=== PATIENT | female | born 1985 | race Caucasian/White ===

== ENCOUNTER 2017-03-17 12:48 | Emergency (ER) | payer MEDICAID ==
[~2017-03-17] VITALS: Ht 91.4 cm; Wt 59.5 kg
[~2017-03-17 12:48] MED LIST: HYDR-3580 PO; LAMI200T PO; PENI500T PO; PERC10TA27 PO; SERT100 PO; TOPA50TA6 PO
[2017-03-17 14:14] VITALS: BP 125/58; PULSE 90; RESP 16; TEMP 99.5; O2SAT 99
[2017-03-17 16:54] VITALS: BP 131/71; PULSE 99; RESP 16; TEMP 98; O2SAT 97
[2017-03-17] MEDS ORDERED: ONDANSETRON ODT 4 MG TAB PO ONE (17:15)
[2017-03-17] MEDS ORDERED: CLINDAMYCIN PHOS 600 MG/4 ML VIAL IM ONE (17:15)
[2017-03-17] MEDS ORDERED: CEPH-460 PO (17:20)
[2017-03-17] MEDS ORDERED: BACT800T5 PO (17:20)
--- NOTE | 2017-03-17 17:20 | PD ---
HPI Chief Complaint: Skin Problem Time Seen by Provider: 17:15 Travel History International Travel<30 days: No Contact w/Intl Traveler<30days: No Traveled to known affect area: No History of Present Illness HPI Patient comes in complaining of infection of her left thumb that began yesterday. Patient states she cut off a hangnail believes this may be underlying cause. Patient states her son had something similar recently and tested positive for MRSA. Patient states has tried soaking as well as using warm compresses. Patient states pain got worse today causing her to feel nauseous, dry heave, and unable keep her medicine down today. Denies any fevers , , chest pain, shortness of breath, loss change in bowel or bladder, or abdominal pain. Pain is throbbing like in nature over her left nailbed that radiates proximally. Pain is worse with palpation and movement of her left thumb. 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: Yes (VON WILLEBRAND) Anxiety: No Depression: Yes Heart Rhythm Problems: No Cancer: No Cardiovascular Problems: No High Cholesterol: No Chest Pain: No Congestive Heart Failure: No COPD: No Cerebrovascular Accident: No Diabetes: No Diminished Hearing: No Endocrine: No Gastrointestinal Disorders: Yes GERD: Yes Genitourinary: No Headaches: No Hepatitis: No Hiatal Hernia: No Hypertension: No Immune Disorder: No Implanted Vascular Access Dvce: Yes Musculoskeletal: Yes (MARY'S KUMAR DZ.) Neurologic: Yes Psychiatric: No Reproductive: No Respiratory: No Migraines: Yes Myocardial Infarction: No Pneumonia: Yes Renal Failure: No Seizures: Yes (DURING - ECLAMPSIA) Sleep Apnea: No Thyroid Disease: Yes (HYPERTHYROID WHILE ) Ulcer: No : 4 Para: 4 Miscarriage: 0 : 0 Tubal Ligation: Yes Past Surgical History Abdominal Surgery: No Appendectomy: Yes Body Medical Devices: HARDWARE IN ALEXIA. ANKLES; SCREW RT. KNEE Cardiac Surgery: No Cholecystectomy: No Endocrine Surgery: No Genitourinary Surgery: No Gynecologic Surgery: No Pacemaker: No Thoracic Surgery: No Tonsillectomy: Yes Other Surgery: Yes (multiple ortho surgeries) Social History Alcohol Use: No Tobacco Use: No Substance Use: No Allergies-Medications (Allergen,Severity, Reaction): Coded Allergies: No Known Allergies (Verified , 03/17/17) Reported Meds & Prescriptions Reported Meds & Active Scripts Active Keflex (Cephalexin) 500 Mg Cap 500 Mg PO Q8H Bactrim DS (Sulfamethoxazole-Trimethoprim) 800-160 Mg Tab 1 Tab PO BID Reported Topamax (Topiramate) 50 Mg Tab 50 Mg PO HS Lamictal (Lamotrigine) 200 Mg Tab 200 Mg PO BID Review of Systems Except as stated in HPI: all other systems reviewed are Neg Physical Exam Narrative GENERAL: Well-developed, well nourished, in no acute distress, and non-ill appearing. SKIN: Fluctuant paronychia noted left nailbed medial aspect. There is no signs of felon, crepitus, streaking, or crepitus. HEAD: Atraumatic. Normocephalic. EYES: Pupils equal and round. EOMI. No scleral icterus. No injection or drainage. ENT: No nasal bleeding or discharge. Mucous membranes pink and moist. NECK: Trachea midline. Supple. No nuclear rigidity. CARDIOVASCULAR: Capillary refills less than 2 seconds. RESPIRATORY: No accessory muscle use. No respiratory distress. MUSCULOSKELETAL: No obvious deformities. No clubbing. No cyanosis. No edema. Full range of motion. NEUROLOGICAL: Awake and alert. No obvious cranial nerve deficits. Motor grossly within normal limits. Normal speech. PSYCHIATRIC: Appropriate mood and affect; insight and judgment normal. Data Data Last Documented VS Vital Signs Date Time Temp Pulse Resp B/P (MAP) Pulse Ox O2 Delivery O2 Flow Rate FiO2 03/17/17 17:58 99 03/17/17 16:54 98.0 99 16 Room Air Orders Orders Wound Culture And Gram Stain (03/17/17 17:04) Clindamycin Inj (Cleocin Inj) (03/17/17 17:15) Ondansetron Odt (Zofran Odt) (03/17/17 17:15) [facility] Medical Decision Making Medical Screen Exam Complete: Yes Emergency Medical Condition: Yes Differential Diagnosis Paronychia, felon, abscess, cellulitis, other Narrative Course The patient presented with a paronychia to the finger. There was no extending cellulitis or evidence of suppurative tendonitis. There was no evidence of subungual involvement or felon. Incision and drainage was performed and small pus was liberated. The patient was given wound care and infection warnings and discharged home on pain medicines and antibiotics. The patient was also instructed to follow up with physician or return here in 2 days for recheck and warnings to return to ED if worsens, or as directed. The patient agreed with plan. Patient in no obvious distress upon re-evaluation. Patient was asked if they wanted to speak to my attending, which the patient did not wish to do at this time. Any questions/concerns in reference to patient diagnosis/condition discussed and clarified prior to patient's discharge. Reinforced sheer importance of close follow up with patient's primary physician or primary care clinic. Instructed patient to return to ED immediately, if symptoms return/ worsen. Pt showed understanding of above instructions. Further instructions and recommendations were detailed in discharge paperwork. Pt ambulated without difficulty out of ED at discharge. Procedures Procedure Narrative Verbal consent was obtained. Area is cleaned and prepped using Betadine swab. Small puncture wound using an 18-gauge needle was made. Wound culture was obtained. Wound was irrigated with copious amounts of normal saline. Sterile dressing was placed by RN. Patient tolerated procedure well. There is no complications. Diagnosis Primary Impression: Paronychia of finger of left hand Patient Instructions: General Instructions, Paronychia (ED) Additional Instructions: Follow-up with your primary care physician or return here in 2 days for recheck. Take all medication as prescribed. Return to the emergency department if symptoms get worse. Med/Other Pt SpecificInfo: Prescription(s) given Scripts Cephalexin (Keflex) 500 Mg Cap 500 MG PO Q8H for Infection, #30 CAP 0 Refills Prov: Perez Palm MD 03/17/17 Sulfamethoxazole-Trimethoprim (Bactrim DS) 800-160 Mg Tab 1 TAB PO BID for Infection, #20 TAB 0 Refills Prov: Perez Palm MD 03/17/17 Disposition: 01 DISCHARGE HOME Condition: Stable Jere Garner Mar 17, 2017 17:20
[2017-03-17] MEDS ORDERED: LAMI200T PO (17:38)
[2017-03-17] MEDS ORDERED: TOPA50TA7 PO (17:38)
== END 2017-03-17 19:21 | disposition home or self-care (01) ==
LOC: PHED 12:48
DX: L03.012 Cellulitis of left finger (principal); B95.62 Methicillin resistant Staphylococcus aureus infection as the cause of diseases classified elsewhere; K21.9 Gastro-esophageal reflux disease without esophagitis; D68.0 Von Willebrand disease; D64.9 Anemia, unspecified
CPT/HCPCS: 86403; 87070; 87186; 87205; 96372

== ENCOUNTER 2017-07-11 01:17 | Observation (INO) | payer MEDICAID ==
[~2017-07-11] VITALS: Ht 160 cm; Wt 59.9 kg
[~2017-07-11 01:17] MED LIST changes: +BACT800T5 PO; +CEPH-460 PO; -HYDR-3580 PO; -PENI500T PO; -PERC10TA27 PO; -SERT100 PO; -TOPA50TA6 PO; +TOPA50TA7 PO
[2017-07-11 01:24] VITALS: BP 105/59; PULSE 97; RESP 20; TEMP 99.2; O2SAT 100
[2017-07-11 01:42] VITALS: RESP 20; O2SAT 100
[2017-07-11] MEDS ORDERED: METOCLOPRAMIDE HCL 10 MG/2 ML VIAL IV PUSH ONE (01:45)
[2017-07-11] MEDS ORDERED: SODIUM CHLORIDE 0.9% FLUSH 10 ML FLUSH IVF PRN (01:45)
[2017-07-11] MEDS ORDERED: KETOROLAC TROMETHAMINE 30 MG/ML (IVP) VIAL IV PUSH ONE (01:45)
--- NOTE | 2017-07-11 01:47 | PD ---
HPI Chief Complaint: Seizure Time Seen by Provider: 01:33 Travel History International Travel<30 days: No Contact w/Intl Traveler<30days: No Traveled to known affect area: No History of Present Illness HPI 31-year-old female with history of Kavon-Danlos syndrome, blindness, seizure disorder on Lamictal and Topamax, brought in by EMS from home for evaluation of seizure-like activity. Patient states that she has not had a seizure in a long time, however yesterday she did have a seizure prior to going to bed. She states that she went to bed with a posterior headache that radiates down her neck as well as dizziness. When she woke up this morning she again noticed a headache and then had some jerking movements in her upper and lower extremities which is not typical for her usual seizure activity. She was awake during these episodes. She now complains of feeling dizzy and nauseous. She reports having a cough throughout the day yesterday. She is unsure if she has a fever. Dizziness is worse with head movements, better with rest. The patient also states that her posterior head pain and neck pain which is described as pressure is much better with rest, worse with movements, 8 out of 10. She states that her son at home has GI symptoms including vomiting and headache, and 2 days ago the patient had some nausea and vomiting as well. PFSH Past Medical History Anemia: Yes Arthritis: No Asthma: No Autoimmune Disease: Yes (SIDNEYLER'S DANLASS DZ.) Blood Disorders: Yes (VON WILLEBRAND) Anxiety: No Depression: Yes Heart Rhythm Problems: No Cancer: No Cardiovascular Problems: No High Cholesterol: No Chest Pain: No Congestive Heart Failure: No COPD: No Cerebrovascular Accident: No Diabetes: No Diminished Hearing: No Endocrine: No Gastrointestinal Disorders: Yes GERD: Yes Genitourinary: No Headaches: No Hepatitis: No Hiatal Hernia: No Hypertension: No Immune Disorder: No Implanted Vascular Access Dvce: Yes Musculoskeletal: Yes (SIDNEYLER'S KUMAR DZ.) Neurologic: Yes Psychiatric: No Reproductive: No Respiratory: No Migraines: Yes Myocardial Infarction: No Pneumonia: Yes Renal Failure: No Seizures: Yes (DURING - ECLAMPSIA) Sleep Apnea: No Thyroid Disease: Yes (HYPERTHYROID WHILE ) Ulcer: No ?: Not : 4 Para: 4 Miscarriage: 0 : 0 Tubal Ligation: Yes Past Surgical History Abdominal Surgery: No Appendectomy: Yes Body Medical Devices: HARDWARE IN ALEXIA. ANKLES; SCREW RT. KNEE Cardiac Surgery: No Cholecystectomy: No Endocrine Surgery: No Genitourinary Surgery: No Gynecologic Surgery: No Pacemaker: No Thoracic Surgery: No Tonsillectomy: Yes Other Surgery: Yes (multiple ortho surgeries) Social History Alcohol Use: No Tobacco Use: No Substance Use: No Allergies-Medications (Allergen,Severity, Reaction): Coded Allergies: No Known Allergies (Verified Adverse Reaction, Unknown, 07/11/17) Reported Meds & Prescriptions Reported Meds & Active Scripts Active Reported Lamotrigine 200 Mg Tab 200 Mg PO TID Topamax (Topiramate) 50 Mg Tab 50 Mg PO HS Review of Systems Except as stated in HPI: all other systems reviewed are Neg Physical Exam Narrative GENERAL: Well-developed, well-nourished, awake, pleasant, no apparent distress. SKIN: Focused skin assessment warm/dry. HEAD: Atraumatic. Normocephalic. EYES: Pupils equal and round. No scleral icterus. No injection or drainage. ENT: Mucous membranes pink and moist. NECK: Trachea midline. No JVD. No nuchal rigidity. CARDIOVASCULAR: Regular rate and rhythm. RESPIRATORY: No accessory muscle use. Clear to auscultation. Breath sounds equal bilaterally. GASTROINTESTINAL: Abdomen soft, non-tender, nondistended. MUSCULOSKELETAL: No obvious deformities. No clubbing. No cyanosis. No edema. NEUROLOGICAL: Awake and alert. No obvious cranial nerve deficits. Motor grossly within normal limits. Normal speech. No focal deficits. PSYCHIATRIC: Appropriate mood and affect; insight and judgment normal. Data Data Last Documented VS Vital Signs Date Time Temp Pulse Resp B/P (MAP) Pulse Ox O2 Delivery O2 Flow Rate FiO2 07/11/17 01:42 20 100 Nasal Cannula 2.00 07/11/17 01:34 96 07/11/17 01:24 99.2 105/59 (74) Orders Orders Complete Blood Count With Diff (07/11/17 01:39) Ct Brain W/O Iv Contrast(Rout) (07/11/17 ) Ecg Monitoring (07/11/17 01:39) Iv Access Insert/Monitor (07/11/17 01:39) Oximetry (07/11/17 01:39) Comprehensive Metabolic Panel (07/11/17 01:39) Sodium Chloride 0.9% Flush (Ns Flush) (07/11/17 01:45) Urinalysis - C+S If Indicated (07/11/17 01:39) Ed Urine Pregnancytest Poc (07/11/17 01:39) Ct Cerv Spine W/O Contrast (07/11/17 ) Influenzae A/B Antigen (07/11/17 01:39) Chest, Single Ap (07/11/17 ) Metoclopramide Inj (Reglan Inj) (07/11/17 01:45) Ckmb (Isoenzyme) Profile (07/11/17 01:39) Troponin I (07/11/17 01:39) Prothrombin Time / Inr (Pt) (07/11/17 01:39) Act Partial Throm Time (Ptt) (07/11/17 01:39) Ketorolac Inj (Toradol Inj) (07/11/17 01:45) Meclizine (Antivert) (07/11/17 03:00) Calcium Gluconate Inj (Calcium Gluconate (07/11/17 03:00) Potassium Chlor 20 Meq Premix (Kcl 20 Me (07/11/17 03:00) Labs Laboratory Tests Test 07/11/17 01:40 07/11/17 01:50 White Blood Count 6.2 TH/MM3 Red Blood Count 3.65 MIL/MM3 Hemoglobin 11.0 GM/DL Hematocrit 33.2 % Mean Corpuscular Volume 91.0 FL Mean Corpuscular Hemoglobin 30.2 PG Mean Corpuscular Hemoglobin Concent 33.2 % Red Cell Distribution Width 12.7 % Platelet Count 210 TH/MM3 Mean Platelet Volume 7.8 FL Neutrophils (%) (Auto) 57.9 % Lymphocytes (%) (Auto) 30.4 % Monocytes (%) (Auto) 11.2 % Eosinophils (%) (Auto) 0.3 % Basophils (%) (Auto) 0.2 % Neutrophils # (Auto) 3.6 TH/MM3 Lymphocytes # (Auto) 1.9 TH/MM3 Monocytes # (Auto) 0.7 TH/MM3 Eosinophils # (Auto) 0.0 TH/MM3 Basophils # (Auto) 0.0 TH/MM3 CBC Comment DIFF FINAL Differential Comment Prothrombin Time 12.0 SEC Prothromb Time International Ratio 1.2 RATIO Activated Partial Thromboplast Time 29.4 SEC Blood Urea Nitrogen 11 MG/DL Creatinine 0.79 MG/DL Random Glucose 112 MG/DL Total Protein 6.2 GM/DL Albumin 3.3 GM/DL Calcium Level 7.1 MG/DL Alkaline Phosphatase 41 U/L Aspartate Amino Transf (AST/SGOT) 15 U/L Alanine Aminotransferase (ALT/SGPT) 20 U/L Total Bilirubin 0.2 MG/DL Sodium Level 143 MEQ/L Potassium Level 2.8 MEQ/L Chloride Level 109 MEQ/L Carbon Dioxide Level 25.3 MEQ/L Anion Gap 9 MEQ/L Estimat Glomerular Filtration Rate 84 ML/MIN Protein Corrected Calcium 7.6 MG/DL Total Creatine Kinase 57 U/L Troponin I LESS THAN 0.02 NG/ML Urine Color YELLOW Urine Turbidity CLEAR Urine pH 6.5 Urine Specific [place] 1.013 Urine Protein TRACE mg/dL Urine Glucose (UA) NEG mg/dL Urine Ketones NEG mg/dL Urine Occult Blood NEG Urine Nitrite NEG Urine Bilirubin NEG Urine Urobilinogen LESS THAN 2.0 MG/DL Urine Leukocyte Esterase NEG Urine RBC 7 /hpf Urine WBC 2 /hpf Urine Squamous Epithelial Cells 3 /hpf Urine Bacteria RARE /hpf Urine Mucus FEW /lpf Microscopic Urinalysis Comment CULT NOT INDICATED MDM Medical Decision Making Medical Screen Exam Complete: Yes Emergency Medical Condition: Yes Differential Diagnosis Breakthrough seizure, intracranial abnormality, influenza, viral illness, URI, pneumonia, UTI, metabolic abnormality, meningitis/encephalitis/SAH unlikely, Narrative Course Initial vital signs show heart rate 97, blood pressure 105/95, pulse ox 100% on 2 L nasal cannula, oral temp of 99.2F. CBC: WBC 6.2, hemoglobin 11, hematocrit 33.2, platelets 210. CMP is remarkable for potassium 2.8, protein cracked a calcium of 7.6, otherwise essentially unremarkable. Cardiac enzymes are negative. Patient's EKG has diffuse T-wave inversions and ST depressions. This is essentially unchanged from 2009. CT head: No acute intracranial findings. CT cervical spine: No evidence of fracture. Chest x-ray: No acute cardiopulmonary disease identified. Patient was given a liter normal saline IV, IV Reglan, and IV Toradol, and on reassessment she states that her headache has improved, however she still feels very dizzy. She will be given a dose of meclizine. Patient has a very significant past medical history including Kavon-Danlos syndrome, blindness, seizure disorder, and because of this she will be admitted for further treatment and evaluation. Potassium and calcium will be replaced parenterally. Diagnosis Primary Impression: Dizziness Additional Impressions: Headache Qualified Codes: R51 - Headache Hypokalemia Hypocalcemia Seizure Juan M Hager MD Jul 11, 2017 01:47
[2017-07-11] MEDS ORDERED: LAMO200T PO (01:50)
[2017-07-11 02:20] LABS: AUTOMATED NEUTROPHIL # 3.6 TH/MM3 (1.8-7.7); BASOPHIL % 0.2 % (0.0-2.0); EOSINOPHIL % 0.3 % (0.0-4.0); HEMATOCRIT 33.2 % (35.0-46.0); LYMPH % 30.4 % (9.0-44.0); LYMPHOCYTE # 1.9 TH/MM3 (1.0-4.8); MEAN CORPUSCULAR HEMOGLOBIN 30.2 PG (27.0-34.0); MEAN CORPUSCULAR HGB CONC 33.2 % (32.0-36.0); MEAN PLATELET VOLUME 7.8 FL (7.0-11.0); MONO % 11.2 % (0.0-8.0); MONOCYTE # 0.7 TH/MM3 (0-0.9); NEUT % 57.9 % (16.0-70.0); PLATELET COUNT 210 TH/MM3 (150-450); RED BLOOD COUNT 3.65 MIL/MM3 (4.00-5.30); RED CELL DISTRIBUTION WIDTH 12.7 % (11.6-17.2); WHITE BLOOD COUNT 6.2 TH/MM3 (4.0-11.0)
[2017-07-11 02:22] LABS: BACTERIA, URINE RARE /hpf; BILIRUBIN, URINE NEG (NEG); BLOOD, URINE NEG (NEG); GLUCOSE,URINE NEG (NEG); KETONE, URINE NEG (NEG); MUCUS URINE FEW /lpf (OCC); NITRITE,URINE NEG (NEG); PH, URINE 6.5 (5.0-8.5); SQUAMOUS EPITHELIAL CELL URINE 3 /hpf (0-5); URINE COLOR YELLOW (YELLW/STRAW); URINE LEUKOCYTE ESTERASE NEG (NEG)
--- NOTE | 2017-07-11 02:24 | RADRPT ---
EXAM DATE/TIME: 07/11/2017 01:54 [facility] COMPARISON: No previous studies available for comparison. INDICATIONS : Nausea and vomiting, Possible seizure MEDICAL HISTORY : Gastroesophageal reflux disease. Kavon Danlos disease, Hx of seizures SURGICAL HISTORY : Tubal ligation. Tonsillectomy. Appendectomy. ENCOUNTER: Initial ACUITY: 1 day PAIN SCORE: 7/10 LOCATION: Bilateral chest FINDINGS: 2 AP views of the chest. The lungs are clear. Cardiomediastinal silhouette within normal limits. No e vidence of pleural effusion or pneumothorax. CONCLUSION: No acute cardiopulmonary disease identified. Moy Mackey MD on July 11, 2017 at 2:21 Board Certified Radiologist. This report was verified electronically.
[2017-07-11 02:35] LABS: INTERNATIONAL NORMALIZED RATIO 1.2 RATIO
--- NOTE | 2017-07-11 02:35 | RADRPT ---
EXAM DATE/TIME: 07/11/2017 02:09 [facility] COMPARISON: No previous studies available for comparison. INDICATIONS : Seizure, dizziness. RADIATION DOSE: 56.35 CTDIvol (mGy) MEDICAL HISTORY : Seizures. SURGICAL HISTORY : None. ENCOUNTER: Initial ACUITY: 1 day PAIN SCALE: 0/10 LOCATION: cranial TECHNIQUE: Multiple contiguous axial images were obtained of the head. Using automated exposure control and adj ustment of the mA and/or kV according to patient size, radiation dose was kept as low as reasonably a chievable to obtain optimal diagnostic quality images. DICOM format image data is available electro nically for review and comparison. FINDINGS: CEREBRUM: The ventricles are normal for age. No evidence of midline shift, mass lesion, hemorrhage or acute in farction. No extra-axial fluid collections are seen. POSTERIOR FOSSA: The cerebellum and brainstem are intact. The 4th ventricle is midline. The cerebellopontine angle i s unremarkable. EXTRACRANIAL: The visualized portion of the orbits is intact. SKULL: The calvaria is intact. No evidence of skull fracture. CONCLUSION: No acute intracranial findings. Moy Mackey MD on July 11, 2017 at 2:29 Board Certified Radiologist. This report was verified electronically.
--- NOTE | 2017-07-11 02:39 | RADRPT ---
EXAM DATE/TIME: 07/11/2017 02:11 [facility] COMPARISON: No previous studies available for comparison. INDICATIONS : Neck pain post seizure. RADIATION DOSE: 30.21 CTDIvol (mGy) MEDICAL HISTORY : Seizures. SURGICAL HISTORY : None. ENCOUNTER: Initial ACUITY: 1 day PAIN SCALE: 2/10 LOCATION: neck TECHNIQUE: Volumetric scanning of the cervical spine was performed. Multiplanar reconstructions in the sagittal, coronal and oblique axial planes were performed. Using automated exposure control and adjustment o f the mA and/or kV according to patient size, radiation dose was kept as low as reasonably achievable to obtain optimal diagnostic quality images. DICOM format image data is available electronically f or review and comparison. FINDINGS: VERTEBRAE: Normal vertebral body height. ALIGNMENT: No evidence of subluxation. C2-C3: The bony spinal canal is normal in size. No evidence of disc bulge or herniation. The neural forami na are bilaterally patent. C3-C4: The bony spinal canal is normal in size. No evidence of disc bulge or herniation. The neural forami na are bilaterally patent. C4-C5: The bony spinal canal is normal in size. No evidence of disc bulge or herniation. The neural forami na are bilaterally patent. C5-C6: The bony spinal canal is normal in size. No evidence of disc bulge or herniation. The neural forami na are bilaterally patent. C6-C7: The bony spinal canal is normal in size. No evidence of disc bulge or herniation. The neural forami na are bilaterally patent. C7-T1: The bony spinal canal is normal in size. No evidence of disc bulge or herniation. The neural forami na are bilaterally patent. CONCLUSION: No evidence of fracture. Moy Mackey MD on July 11, 2017 at 2:34 Board Certified Radiologist. This report was verified electronically.
[2017-07-11 02:40] LABS: ALBUMIN 3.3 GM/DL (3.4-5.0); ALT (GPT) 20 U/L (10-53); AST (GOT) 15 U/L (15-37); BICARBONATE 25.3 MEQ/L (21.0-32.0); BLOOD UREA NITROGEN 11 MG/DL (7-18); CALCIUM 7.1 MG/DL (8.5-10.1); CHLORIDE 109 MEQ/L (98-107); CREATININE 0.79 MG/DL (0.50-1.00); GLOMERULAR FILTRATION RATE 84 ML/MIN (>89); GLUCOSE,RANDOM 112 MG/DL (74-106); SODIUM (NA) 143 MEQ/L (136-145)
[2017-07-11 02:51] LABS: ALKALINE PHOSPHATASE 41 U/L (45-117); CALCIUM-PROTEIN CORRECTED 7.6 MG/DL (8.5-10.1); TOTAL BILIRUBIN ADULT 0.2 MG/DL (0.2-1.0); TOTAL PROTEIN 6.2 GM/DL (6.4-8.2); TROPONIN I LESS THAN 0.02 NG/ML (0.02-0.05)
[2017-07-11] MEDS ORDERED: CALCIUM GLUCONATE INJ 1 GM in DEXTROSE 5% IN WATER 100ML INJ 100 ML IV ONE ×2 (03:00)
[2017-07-11] MEDS ORDERED: MECLIZINE HCL 25 MG TAB PO ONE (03:00)
[2017-07-11 04:19] VITALS: BP 91/54; PULSE 77; RESP 16; O2SAT 98
[2017-07-11] MEDS ORDERED: MAGNESIUM HYDROXIDE SUSP 30 ML CUP PO PRN (04:30)
[2017-07-11] MEDS ORDERED: BISACODYL 10 MG SUPP RECTAL PRN (04:30)
[2017-07-11] MEDS ORDERED: NALOXONE HCL 0.4 MG/ML AMP IV PUSH PRN (04:30)
[2017-07-11] MEDS ORDERED: LACTULOSE SYRUP 20 GM/30 ML CUP PO PRN (04:30)
[2017-07-11] MEDS ORDERED: ACETAMINOPHEN 325 MG TAB PO PRN (04:30)
[2017-07-11] MEDS ORDERED: SENNOSIDES 8.6 MG TAB PO PRN (04:30)
[2017-07-11] MEDS ORDERED: SODIUM CHLORIDE 0.9% FLUSH 10 ML FLUSH IV FLUSH PRN (04:30)
[2017-07-11] MEDS ORDERED: ONDANSETRON HCL 4 MG/2 ML VIAL IVP PRN (04:30)
[2017-07-11] MEDS ORDERED: GADODIAMIDE PF 287 MG/ML 10 ML VIAL (for RAD MRI) IVCONTRAST ONE (04:32)
[2017-07-11] MEDS: POTASSIUM CHLOR 20 MEQ PREMIX 100 ML IV SCH ×2 (04:36→06:46)
[2017-07-11 08:00] VITALS: BP 99/55; PULSE 80; RESP 18; TEMP 98.3; O2SAT 98
[2017-07-11] MEDS: DOCUSATE SODIUM 50 MG/SENNA 8.6 MG TAB PO SCH ×2 (09:00→19:40)
[2017-07-11] MEDS: SODIUM CHLORIDE 0.9% FLUSH 10 ML FLUSH IV FLUSH SCH ×2 (09:00→19:41)
[2017-07-11] MEDS: lamoTRIgine 100 MG TAB PO SCH ×4 (09:03→19:41)
[2017-07-11 12:00] VITALS: BP 91/50; PULSE 78; RESP 18; TEMP 98.6; O2SAT 93
[2017-07-11] MEDS: 1/2 NS + KCL 20 MEQ INJ 1,000 ML IV SCH ×2 (12:41→19:42)
[2017-07-11 13:30] LABS: BICARBONATE 28.9 MEQ/L (21.0-32.0); CALCIUM 7.9 MG/DL (8.5-10.1); CREATININE 0.78 MG/DL (0.50-1.00); PHOSPHORUS 1.2 MG/DL (2.5-4.9)
[2017-07-11] MEDS ORDERED: LORazepam 2 MG/ML VIAL IV PUSH PRN (15:00)
--- NOTE | 2017-07-11 15:00 | HHI.HP ---
HPI Service [facility] Primary Care Physician Rafael Asif DO Admission Diagnosis intractable dizziness, hypokalemia, hypocalcemia, headache Diagnoses: Chief Complaint: Dizziness, seizures Travel History International Travel<30 Days: No Contact w/Intl Traveler <30 Da: No Traveled to Known Affected Are: No History of Present Illness The patient is a 31-year-old female with a past medical history of Erler Danlos syndrome and seizure disorder who is presenting to the hospital with dizziness and seizures. The patient states that for the past couple of days she has felt weak and dizzy. She describes the dizziness as feeling like the room is spinning around. She describes feeling sore and achy all over her body. She has been having a headache on and off involving the back and top of her head. She does describe some sinus pain as well. She says the dizziness is so bad she could barely sit up. She says sometimes she vomits because of the dizziness. She was told by her mother that she was having seizures that appeared partial/ complex and involving all limbs. The patient is currently feeling better but is still nauseous. She says she has had vertigo in the past but not this severe. Discussed with nursing. Review of Systems Except as stated in HPI: all other systems reviewed are Neg Past Family Social History Past Medical History Kavon Danlos syndrome Congenital blindness Seizure disorder Vertigo Von Willebrand's disease Past Surgical History Bilateral ankle surgery Bilateral knee surgery Allergies: Coded Allergies: No Known Allergies (Verified Allergy, Unknown, 07/11/17) Active Ordered Medications Current Medications Medications (Trade) Dose Ordered Sig/Beth Route Start Time Stop Time Status Last Admin (NS Flush) 2 ml UNSCH PRN IV FLUSH 07/11/17 04:30 (NS Flush) 2 ml BID IV FLUSH 07/11/17 09:00 (Tylenol) 650 mg Q4H PRN PO 07/11/17 04:30 (Zofran Inj) 4 mg Q6H PRN IVP 07/11/17 04:30 (Narcan Inj) 0.4 mg UNSCH PRN IV PUSH 07/11/17 04:30 (Ninfa-Colace) 1 tab BID PO 07/11/17 09:00 (Milk Of Magnesia Liq) 30 ml Q12H PRN PO 07/11/17 04:30 (Senokot) 17.2 mg Q12H PRN PO 07/11/17 04:30 (Dulcolax Supp) 10 mg DAILY PRN RECTAL 07/11/17 04:30 (Lactulose Liq) 30 ml DAILY PRN PO 07/11/17 04:30 (Topamax) 50 mg HS PO 07/11/17 21:00 Potassium Chloride/Sodium Chloride 1,000 ml @ 100 mls/hr Q10H IV 07/11/17 12:00 07/11/17 12:41 (LaMICtal) 200 mg QID PO 07/11/17 18:00 (Antivert) 25 mg Q8H PRN PO 07/11/17 13:30 Potassium Phosphate 30 mmol/ Sodium Chloride 260 ml @ 43.333 mls/ hr ONCE ONCE IV 07/11/17 16:00 07/11/17 21:59 Family History Gaucher disease Kaitlyn's disease Polymyositis Rheumatoid arthritis Autism Social History The patient does not smoke. She has rare alcohol intake. She denies illicit substance use. Physical Exam Vital Signs Vital Signs Date Time Temp Pulse Resp B/P (MAP) Pulse Ox O2 Delivery O2 Flow Rate FiO2 07/11/17 12:00 98.6 78 18 91/50 (64) 93 07/11/17 08:00 98.3 80 18 99/55 (70) 98 07/11/17 05:46 07/11/17 04:19 77 16 91/54 (66) 98 Nasal Cannula 2.00 07/11/17 01:42 20 100 Nasal Cannula 2.00 07/11/17 01:34 96 100 Nasal Cannula 07/11/17 01:24 99.2 97 20 105/59 (74) 100 Physical Exam GENERAL: This is a well-nourished, well-developed patient, in no apparent distress. SKIN: No rashes, ecchymoses or lesions. Cool and dry. HEAD: Atraumatic. Normocephalic. No temporal or scalp tenderness. EYES: Congenital blindness. Extraocular motions intact. No scleral icterus. No injection or drainage. ENT: Nose without bleeding, purulent drainage or septal hematoma. Throat without erythema, tonsillar hypertrophy or exudate. Uvula midline. Airway patent. NECK: Trachea midline. No JVD or lymphadenopathy. Supple, nontender, no meningeal signs. CARDIOVASCULAR: Regular rate and rhythm without murmurs, gallops, or rubs. RESPIRATORY: Clear to auscultation. Breath sounds equal bilaterally. No wheezes , rales, or rhonchi. GASTROINTESTINAL: Abdomen soft, non-tender, nondistended. No hepato-splenomegaly , or palpable masses. No guarding. MUSCULOSKELETAL: Extremities without clubbing, cyanosis, or edema. No joint tenderness, effusion, or edema noted. NEUROLOGICAL: Awake and alert. Cranial nerves II through XII intact. Motor and sensory grossly within normal limits. Five out of 5 muscle strength in all muscle groups. Normal speech. PSYCH: Mood and affect appropriate. Laboratory Laboratory Tests Test 07/11/17 01:40 07/11/17 01:50 07/11/17 05:20 07/11/17 12:12 White Blood Count 6.2 Red Blood Count 3.65 Hemoglobin 11.0 Hematocrit 33.2 Mean Corpuscular Volume 91.0 Mean Corpuscular Hemoglobin 30.2 Mean Corpuscular Hemoglobin Concent 33.2 Red Cell Distribution Width 12.7 Platelet Count 210 Mean Platelet Volume 7.8 Neutrophils (%) (Auto) 57.9 Lymphocytes (%) (Auto) 30.4 Monocytes (%) (Auto) 11.2 Eosinophils (%) (Auto) 0.3 Basophils (%) (Auto) 0.2 Neutrophils # (Auto) 3.6 Lymphocytes # (Auto) 1.9 Monocytes # (Auto) 0.7 Eosinophils # (Auto) 0.0 Basophils # (Auto) 0.0 CBC Comment DIFF FINAL Differential Comment Prothrombin Time 12.0 Prothromb Time International Ratio 1.2 Activated Partial Thromboplast Time 29.4 Blood Urea Nitrogen 11 10 Creatinine 0.79 0.78 Random Glucose 112 97 Total Protein 6.2 Albumin 3.3 Calcium Level 7.1 7.9 Alkaline Phosphatase 41 Aspartate Amino Transf (AST/SGOT) 15 Alanine Aminotransferase (ALT/SGPT) 20 Total Bilirubin 0.2 Sodium Level 143 143 Potassium Level 2.8 3.4 Chloride Level 109 110 Carbon Dioxide Level 25.3 28.9 Anion Gap 9 4 Estimat Glomerular Filtration Rate 84 85 Protein Corrected Calcium 7.6 Total Creatine Kinase 57 Troponin I LESS THAN 0.02 Urine Color YELLOW Urine Turbidity CLEAR Urine pH 6.5 Urine Specific [place] 1.013 Urine Protein TRACE Urine Glucose (UA) NEG Urine Ketones NEG Urine Occult Blood NEG Urine Nitrite NEG Urine Bilirubin NEG Urine Urobilinogen LESS THAN 2.0 Urine Leukocyte Esterase NEG Urine RBC 7 Urine WBC 2 Urine Squamous Epithelial Cells 3 Urine Bacteria RARE Urine Mucus FEW Microscopic Urinalysis Comment CULT NOT INDICATED Phosphorus Level 1.2 Magnesium Level 2.0 Date/Time Source Procedure Growth Status 07/11/17 01:55 Nasal Washing Influenza Types A,B Antigen (ZHEN) - Final NEGATIVE FOR FLU A AND B ANTIGEN.... Complete Result Diagram: 07/11/17 0140 07/11/17 1212 Imaging Last Impressions Head CT 07/11/17 0000 Signed Impressions: Service Date/Time: Tuesday, July 11, 2017 02:09 - CONCLUSION: No acute intracranial findings. Moy Mackey MD Chest X-Ray 07/11/17 0000 Signed Impressions: Service Date/Time: Tuesday, July 11, 2017 01:54 - CONCLUSION: No acute cardiopulmonary disease identified. Moy Mackey MD Cervical Spine CT 07/11/17 0000 Signed Impressions: Service Date/Time: Tuesday, July 11, 2017 02:11 - CONCLUSION: No evidence of fracture. MD Twyla Shaffer VTE Risk Assessment Darrylrinrosy VTE Risk Assessment: Mod/High Risk (score >= 2) Caprini Risk Assessment Model Point Value = 1 Point Value = 2 Point Value = 3 Point Value = 5 Age 41-60 Minor surgery BMI > 25 kg/m2 Swollen legs Varicose veins or History of unexplained or recurrent spontaneous Oral contraceptives or hormone replacement Sepsis (< 1 month) Serious lung disease, including pneumonia (< 1 month) Abnormal pulmonary function Acute myocardial infarction Congestive heart failure (< 1 month) History of inflammatory bowel disease Medical patient at bed rest Age 61-74 Arthroscopic surgery Major open surgery (> 45 min) Laparoscopic surgery (> 45 min) Malignancy Confined to bed (> 72 hours) Immobilizing plaster cast Central venous access Age >= 75 History of VTE Family history of VTE Factor V Leiden Prothrombin [id number] Lupus anticoagulant Anticardiolipin antibodies Elevated serum homocysteine Heparin-induced thrombocytopenia Other congenital or acquired thrombophilia Stroke (< 1 month) Elective arthroplasty Hip, pelvis, or leg fracture Acute spinal cord injury (< 1 month) Prophylaxis Regimen Total Risk Factor Score Risk Level Prophylaxis Regimen 0-1 Low Early ambulation 2 Moderate Order ONE of the following: *Sequential Compression Device (SCD) *Heparin 5000 units SQ BID 3-4 Higher Order ONE of the following medications: *Heparin 5000 units SQ TID *Enoxaparin/Lovenox 40 mg SQ daily (WT < 150 kg, CrCl > 30 mL/min) *Enoxaparin/Lovenox 30 mg SQ daily (WT < 150 kg, CrCl > 10-29 mL/min) *Enoxaparin/Lovenox 30 mg SQ BID (WT < 150 kg, CrCl > 30 mL/min) AND/OR *Sequential Compression Device (SCD) 5 or more Highest Order ONE of the following medications: *Heparin 5000 units SQ TID (Preferred with Epidurals) *Enoxaparin/Lovenox 40 mg SQ daily (WT < 150 kg, CrCl > 30 mL/min) *Enoxaparin/Lovenox 30 mg SQ daily (WT < 150 kg, CrCl > 10-29 mL/min) *Enoxaparin/Lovenox 30 mg SQ BID (WT < 150 kg, CrCl > 30 mL/min) AND *Sequential Compression Device (SCD) Assessment and Plan Assessment and Plan Vertigo The patient is very dizzy and has been nauseous secondary to the dizziness. She has had milder cases in the past. CT of the head was unremarkable. - Meclizine as needed. Add Valium if ineffective. - Antiemetics as needed. - IV fluids. - Physical therapy. Seizures Reported by the patient's mother. - EEG pending. - Continue Topamax and Lamictal. - Neurology consultation pending. - Seizure precautions. Severe hypokalemia/ hypophosphatemia Likely secondary to nausea and vomiting. - Replete with IV supplementation and monitor BMP. - ADAT. Anemia Chronic. - Follow CBC as needed. Hypotension Likely secondary to hypovolemia. - IV fluids. - Advance diet. PPx: SCDs Discussed Condition With Pt, nurse Marco Hdez DO Jul 11, 2017 15:00
[2017-07-11] MEDS: MECLIZINE HCL 25 MG TAB PO PRN (15:30)
[2017-07-11] MEDS ORDERED: POTASSIUM PHOSPHATE INJ 30 MMOL in SODIUM CHLOR 0.9% 250 ML INJ 250 ML IV ONE (16:00)
--- NOTE | 2017-07-11 19:35 | MG ---
cc: JANE NOONAN M.D. Lab No: [id number] Date: 07/11/17 Age: 31 Sex: F Race: TECHNIQUE 17 channel EEG. DESCRIPTION The background rhythm is a symmetrical alpha rhythm frequency of 8 Hz. Sleep spindles are identified in patient during normal sleep activity and there is also theta slowing at this time. There is some sharp activity present bilaterally but I think this is most likely normal sleep activity. Vertex sharp waves. No definite epileptiform features are identified. No lateralizing features are seen. Photic results in a normal driving response. Hyperventilation does not alter the background rhythm. INTERPRETATION Normal awake and asleep EEG. MD MEKA Shah/ITZEL /5:57 PM /7:03 PM
[2017-07-11] MEDS: TOPIRAMATE 25 MG TAB PO SCH (19:41)
--- NOTE | 2017-07-11 19:53 | MB ---
cc: JANE NOONAN DATE OF CONSULTATION: 07/11/16 REASON FOR CONSULTATION Breakthrough seizures. HISTORY OF PRESENT ILLNESS Ms. Barber is a very pleasant 31-year-old female who has a long history of seizure disorder. She normally takes Lamictal 200 mg four times a day and Topamax 50 mg h.s. This usually works well at preventing her seizures. She states over the past several days she has had severe vertigo with nausea and had a couple of breakthrough seizures which she thinks is somewhat stress related. PAST MEDICAL HISTORY 1. History of seizure disorder. 2. History of congenital blindness. 3. Von Willebrand disease. 4. Kavon-Danlos syndrome. 5. Dc's seizure disorder. MEDICATIONS CURRENTLY 1. Lamictal 200 mg four times a day. 2. Topamax 50 mg h.s. 3. Ativan as needed. 4. Antivert which does help the dizziness. 5. Ninfa-Colace. 6. Tylenol. NEUROLOGIC EXAMINATION VITAL SIGNS: Blood pressure 99/55, pulse 80, respiratory rate is 18, temperature 98 degrees. Higher cortical functions are normal. Cranial nerves: She has blindness in both eyes. Pupils are 4 mm. Extraocular movements intact. Motor exam: No focal deficit. Normal strength and tone. Reflexes are symmetric. IMAGING Head CT is normal. CT cervical spine normal. LABORATORY DATA White count 6200, hemoglobin 11, hematocrit 33%, platelets 210,000. Sodium is 143, potassium 3.4, chloride 110, CO2 28.9, BUN is 10, creatinine 0.78, GFR is 85, glucose 97, AST 15, ALT is 20, alk phos 41. Tox screen pending. Urinalysis is negative. IMPRESSION Breakthrough seizures. Probably related to the stressors of her vertigo. I would recommend continue current anticonvulsants. Her EEG was normal. I would like to get a brain MRI for further evaluation of her vertigo. Continue meclizine. MD MEKA Shah/ITZEL /6:05 PM /7:18 PM
[2017-07-11 20:00] VITALS: BP 101/62; PULSE 89; PULSE 90; RESP 16; TEMP 98.2; O2SAT 100
[2017-07-11] MEDS: DIAZEPAM 5 MG TAB PO PRN (20:44)
--- NOTE | 2017-07-11 20:56 | RADRPT ---
EXAM DATE/TIME: 07/11/2017 20:05 [facility] COMPARISON: No previous studies available for comparison. INDICATIONS : Cephalgia. Dizziness. CONTRAST: 10 cc Omniscan (gadodiamide) IV MEDICAL HISTORY : Seizures. Kavon danlass, Von willebrand SURGICAL HISTORY : Tonsillectomy. Orthopaedic. ENCOUNTER: Initial ACUITY: 1 day PAIN SCORE: 4/10 LOCATION: cranial TECHNIQUE: Multiplanar, multisequence MRI of the brain was performed both prior to and following the administrat ion of paramagnetic contrast. FINDINGS: CEREBRUM: The ventricles are normal for age. No evidence of midline shift, mass lesion, hemorrhage or acute in farction. No extraaxial fluid collections are seen. The pituitary gland and suprasellar cistern are normal in configuration. WHITE MATTER: No significant signal abnormalities are seen in the white matter. POSTERIOR FOSSA: The cerebellum and brainstem are intact. The 4th ventricle is midline. The cerebellopontine angle is unremarkable. The cerebellar tonsils are normal in position. DIFFUSION IMAGING: No focal areas of restricted diffusion are seen. No evidence of acute infarction. EXTRACRANIAL: The visualized portions of the orbits and paranasal sinuses are unremarkable. POST-CONTRAST: No abnormal areas of parenchymal or dural enhancement. No evidence of blood-brain barrier breakdown. CONCLUSION: Normal examination for a patient of this age. Viet Grimaldo MD on July 11, 2017 at 20:51 Board Certified Radiologist. This report was verified electronically.
--- NOTE | 2017-07-11 22:03 | EKG ---
Date Performed: 07/11/2017 Time Performed: 01:32:52 PTAGE: 31 years EKG: Sinus rhythm ST DEVIATION AND MODERATE T-WAVE ABNORMALITY, CONSIDER INFERIOR ISCHEMIA ABNORMAL ECG NO PREVIOUS TRACING DOCTOR: Jordan Smith Interpretating Date/Time 07/11/2017 22:01:30
[2017-07-12] VITALS (9 sets, daily range): BP systolic 80–106; BP diastolic 46–62; PULSE 73–98; RESP 15–17; TEMP 96.7–98; O2SAT 98–100
[2017-07-12 07:22] LABS: AUTOMATED NEUTROPHIL # 2.6 TH/MM3 (1.8-7.7); BASOPHIL % 0.3 % (0.0-2.0); EOSINOPHIL # 0.1 TH/MM3 (0-0.4); EOSINOPHIL % 1.3 % (0.0-4.0); HEMATOCRIT 35.6 % (35.0-46.0); LYMPH % 42.7 % (9.0-44.0); LYMPHOCYTE # 2.4 TH/MM3 (1.0-4.8); MEAN CELL VOLUME 90.6 FL (80.0-100.0); MEAN CORPUSCULAR HEMOGLOBIN 30.5 PG (27.0-34.0); MEAN CORPUSCULAR HGB CONC 33.7 % (32.0-36.0); MEAN PLATELET VOLUME 8.1 FL (7.0-11.0); MONO % 10.4 % (0.0-8.0); MONOCYTE # 0.6 TH/MM3 (0-0.9); NEUT % 45.3 % (16.0-70.0); PLATELET COUNT 260 TH/MM3 (150-450); RED BLOOD COUNT 3.93 MIL/MM3 (4.00-5.30); RED CELL DISTRIBUTION WIDTH 12.8 % (11.6-17.2); WHITE BLOOD COUNT 5.6 TH/MM3 (4.0-11.0)
[2017-07-12 07:56] LABS: BICARBONATE 26.6 MEQ/L (21.0-32.0); CALCIUM 8.8 MG/DL (8.5-10.1); CREATININE 0.91 MG/DL (0.50-1.00)
[2017-07-12] MEDS: lamoTRIgine 100 MG TAB PO SCH ×4 (08:02→22:20)
[2017-07-12] MEDS: DOCUSATE SODIUM 50 MG/SENNA 8.6 MG TAB PO SCH ×2 (08:02→21:00)
[2017-07-12] MEDS: SODIUM CHLORIDE 0.9% FLUSH 10 ML FLUSH IV FLUSH SCH ×2 (08:03→22:21)
--- NOTE | 2017-07-12 15:05 | HHI.PR ---
Subjective Remarks The patient said that her vertigo was a little bit better but still present. She has been tolerating a diet. She said the Valium helped. She describes night sweats for the past few nights. Discussed with nursing. Objective Vitals Vital Signs Date Time Temp Pulse Resp B/P (MAP) Pulse Ox O2 Delivery O2 Flow Rate FiO2 07/12/17 12:00 98.0 84 16 99/51 (67) 100 07/12/17 07:22 97.2 82 16 81/46 (58) 99 07/12/17 04:00 76 07/12/17 03:58 96.7 73 15 80/52 (61) 100 07/12/17 00:30 97.5 85 16 99/55 (70) 98 07/12/17 00:00 85 07/11/17 20:00 98.2 89 16 101/62 (75) 100 07/11/17 20:00 90 I/O 07/11/17 07/11/17 07/11/17 07/12/17 07/12/17 07/12/17 06:59 14:59 22:59 06:59 14:59 22:59 Intake Total 210 ml 100 ml 240 ml 240 ml Balance 210 ml 100 ml 240 ml 240 ml Intake Oral 240 ml 240 ml IV Total 210 ml 100 ml # Voids 1 3 # Bowel Movements 0 0 Result Diagram: 07/12/17 0514 07/12/17 0514 Imaging Last Impressions Head CT 07/11/17 0000 Signed Impressions: Service Date/Time: Tuesday, July 11, 2017 02:09 - CONCLUSION: No acute intracranial findings. Moy Mackey MD Chest X-Ray 07/11/17 0000 Signed Impressions: Service Date/Time: Tuesday, July 11, 2017 01:54 - CONCLUSION: No acute cardiopulmonary disease identified. Myo Mackey MD Cervical Spine CT 07/11/17 0000 Signed Impressions: Service Date/Time: Tuesday, July 11, 2017 02:11 - CONCLUSION: No evidence of fracture. Moy Mackey MD Brain MRI 07/11/17 0000 Signed Impressions: Service Date/Time: Tuesday, July 11, 2017 20:05 - CONCLUSION: Normal examination for a patient of this age. Viet Grimaldo MD Objective Remarks GENERAL: This is a well-nourished, well-developed patient, in no apparent distress. SKIN: No rashes, ecchymoses or lesions. Cool and dry. HEAD: Atraumatic. Normocephalic. No temporal or scalp tenderness. EYES: Congenital blindness. Extraocular motions intact. No scleral icterus. No injection or drainage. ENT: Nose without bleeding, purulent drainage or septal hematoma. Throat without erythema, tonsillar hypertrophy or exudate. Uvula midline. Airway patent. NECK: Trachea midline. No JVD or lymphadenopathy. Supple, nontender, no meningeal signs. CARDIOVASCULAR: Regular rate and rhythm without murmurs, gallops, or rubs. RESPIRATORY: Clear to auscultation. Breath sounds equal bilaterally. No wheezes , rales, or rhonchi. GASTROINTESTINAL: Abdomen soft, non-tender, nondistended. No hepato-splenomegaly , or palpable masses. No guarding. MUSCULOSKELETAL: Extremities without clubbing, cyanosis, or edema. No joint tenderness, effusion, or edema noted. NEUROLOGICAL: Awake and alert. Cranial nerves II through XII intact. Motor and sensory grossly within normal limits. Five out of 5 muscle strength in all muscle groups. Normal speech. PSYCH: Mood and affect appropriate. Medications and IVs Current Medications Medications (Trade) Dose Ordered Sig/Beth Route Start Time Stop Time Status Last Admin (NS Flush) 2 ml UNSCH PRN IV FLUSH 07/11/17 04:30 (NS Flush) 2 ml BID IV FLUSH 07/11/17 09:00 07/12/17 08:03 (Tylenol) 650 mg Q4H PRN PO 07/11/17 04:30 (Zofran Inj) 4 mg Q6H PRN IVP 07/11/17 04:30 (Narcan Inj) 0.4 mg UNSCH PRN IV PUSH 07/11/17 04:30 (Ninfa-Colace) 1 tab BID PO 07/11/17 09:00 07/12/17 08:02 (Milk Of Magnesia Liq) 30 ml Q12H PRN PO 07/11/17 04:30 (Senokot) 17.2 mg Q12H PRN PO 07/11/17 04:30 (Dulcolax Supp) 10 mg DAILY PRN RECTAL 07/11/17 04:30 (Lactulose Liq) 30 ml DAILY PRN PO 07/11/17 04:30 (Topamax) 50 mg HS PO 07/11/17 21:00 07/11/17 19:41 Potassium Chloride/Sodium Chloride 1,000 ml @ 100 mls/hr Q10H IV 07/11/17 12:00 07/11/17 19:42 (LaMICtal) 200 mg QID PO 07/11/17 18:00 07/12/17 12:43 (Antivert) 25 mg Q8H PRN PO 07/11/17 13:30 07/11/17 15:30 (Ativan Inj) 1 mg Q2H PRN IV PUSH 07/11/17 15:00 (Valium) 5 mg Q8H PRN PO 07/11/17 19:00 07/11/17 20:44 A/P Assessment and Plan Vertigo The patient is very dizzy and has been nauseous secondary to the dizziness. She has had milder cases in the past. CT of the head was unremarkable. MRI of the brain was also unremarkable. - Meclizine as needed. Add Valium. - Antiemetics as needed. - IV fluids. - Physical therapy. Seizures Reported by the patient's mother. EEG unremarkable. - Continue Topamax and Lamictal. - Neurology following. - Seizure precautions. Severe hypokalemia/ hypophosphatemia Likely secondary to nausea and vomiting. Improved. - Replete with IV supplementation and monitor BMP. - ADAT. Anemia Chronic. - Follow CBC as needed. Hypotension Likely secondary to hypovolemia. - IV fluids. - Advance diet. PPx: SCDs Discharge Planning Hopefully discharge home in the morning Marco Hdez DO Jul 12, 2017 15:05
[2017-07-12] MEDS: DIAZEPAM 5 MG TAB PO PRN (15:47)
[2017-07-12] MEDS: 1/2 NS + KCL 20 MEQ INJ 1,000 ML IV SCH ×2 (15:50→22:23)
[2017-07-12] MEDS: TOPIRAMATE 25 MG TAB PO SCH (22:21)
[2017-07-13] VITALS (7 sets, daily range): BP systolic 90–100; BP diastolic 48–62; PULSE 71–94; RESP 17–18; TEMP 96–97.7; O2SAT 95–100
[2017-07-13] MEDS: DIAZEPAM 5 MG TAB PO PRN ×3 (00:05→17:59)
[2017-07-13] MEDS: MECLIZINE HCL 25 MG TAB PO PRN ×3 (00:05→17:59)
[2017-07-13] MEDS: DOCUSATE SODIUM 50 MG/SENNA 8.6 MG TAB PO SCH ×2 (08:03→21:00)
[2017-07-13] MEDS: SODIUM CHLORIDE 0.9% FLUSH 10 ML FLUSH IV FLUSH SCH ×2 (08:03→23:06)
[2017-07-13] MEDS: lamoTRIgine 100 MG TAB PO SCH ×4 (09:19→23:05)
[2017-07-13] MEDS ORDERED: HYDR-3580 PO (13:03)
[2017-07-13] MEDS: ACETAMINOPHEN/HYDROcodone 325 MG/7.5 MG TAB PO PRN ×2 (15:00→23:20)
[2017-07-13] MEDS ORDERED: ZOLO100T PO (15:28)
--- NOTE | 2017-07-13 15:41 | HHI.PR ---
Subjective Remarks The patient said that she wanted her Zoloft resumed. She was still having some vertigo and has been moving around slowly. She says the Valium and meclizine help. Discussed with nursing. Objective Vitals Vital Signs Date Time Temp Pulse Resp B/P (MAP) Pulse Ox O2 Delivery O2 Flow Rate FiO2 07/13/17 12:00 97.7 94 18 93/48 (63) 100 07/13/17 08:00 96.7 75 18 92/53 (66) 100 07/13/17 04:49 97.1 71 17 90/56 (67) 100 07/12/17 23:17 97.5 82 17 106/62 (77) 100 07/12/17 19:22 97.1 98 17 99/55 (70) 98 07/12/17 16:00 97.7 81 16 103/52 (69) 98 I/O 07/12/17 07/12/17 07/12/17 07/13/17 07/13/17 07/13/17 07:00 15:00 23:00 07:00 15:00 23:00 Intake Total 1200 ml 480 ml 480 ml 600 ml Balance 1200 ml 480 ml 480 ml 600 ml Intake Oral 1200 ml 480 ml 480 ml 600 ml # Voids 6 2 1 3 # Bowel Movements 2 0 0 1 Result Diagram: 07/12/17 0514 07/12/1714 Imaging Last Impressions Head CT 07/11/17 0000 Signed Impressions: Service Date/Time: Tuesday, July 11, 2017 02:09 - CONCLUSION: No acute intracranial findings. Moy Mackey MD Chest X-Ray 07/11/17 0000 Signed Impressions: Service Date/Time: Tuesday, July 11, 2017 01:54 - CONCLUSION: No acute cardiopulmonary disease identified. Moy Mackey MD Cervical Spine CT 07/11/17 0000 Signed Impressions: Service Date/Time: Tuesday, July 11, 2017 02:11 - CONCLUSION: No evidence of fracture. Moy Mackey MD Brain MRI 07/11/17 0000 Signed Impressions: Service Date/Time: Tuesday, July 11, 2017 20:05 - CONCLUSION: Normal examination for a patient of this age. Viet Grimaldo MD Objective Remarks GENERAL: This is a well-nourished, well-developed patient, in no apparent distress. SKIN: No rashes, ecchymoses or lesions. Cool and dry. HEAD: Atraumatic. Normocephalic. No temporal or scalp tenderness. EYES: Congenital blindness. Extraocular motions intact. No scleral icterus. No injection or drainage. ENT: Nose without bleeding, purulent drainage or septal hematoma. Throat without erythema, tonsillar hypertrophy or exudate. Uvula midline. Airway patent. NECK: Trachea midline. No JVD or lymphadenopathy. Supple, nontender, no meningeal signs. CARDIOVASCULAR: Regular rate and rhythm without murmurs, gallops, or rubs. RESPIRATORY: Clear to auscultation. Breath sounds equal bilaterally. No wheezes , rales, or rhonchi. GASTROINTESTINAL: Abdomen soft, non-tender, nondistended. No hepato-splenomegaly , or palpable masses. No guarding. MUSCULOSKELETAL: Extremities without clubbing, cyanosis, or edema. No joint tenderness, effusion, or edema noted. NEUROLOGICAL: Awake and alert. Cranial nerves II through XII intact. Motor and sensory grossly within normal limits. Five out of 5 muscle strength in all muscle groups. Normal speech. PSYCH: Mood and affect appropriate. Medications and IVs Current Medications Medications (Trade) Dose Ordered Sig/Beth Route Start Time Stop Time Status Last Admin (NS Flush) 2 ml UNSCH PRN IV FLUSH 07/11/17 04:30 (NS Flush) 2 ml BID IV FLUSH 07/11/17 09:00 07/12/17 22:21 (Tylenol) 650 mg Q4H PRN PO 07/11/17 04:30 (Zofran Inj) 4 mg Q6H PRN IVP 07/11/17 04:30 (Narcan Inj) 0.4 mg UNSCH PRN IV PUSH 07/11/17 04:30 (Ninfa-Colace) 1 tab BID PO 07/11/17 09:00 07/12/17 08:02 (Milk Of Magnesia Liq) 30 ml Q12H PRN PO 07/11/17 04:30 (Senokot) 17.2 mg Q12H PRN PO 07/11/17 04:30 (Dulcolax Supp) 10 mg DAILY PRN RECTAL 07/11/17 04:30 (Lactulose Liq) 30 ml DAILY PRN PO 07/11/17 04:30 (Topamax) 50 mg HS PO 07/11/17 21:00 07/12/17 22:21 (LaMICtal) 200 mg QID PO 07/11/17 18:00 07/13/17 12:55 (Antivert) 25 mg Q8H PRN PO 07/11/17 13:30 07/13/17 09:19 (Ativan Inj) 1 mg Q2H PRN IV PUSH 07/11/17 15:00 (Valium) 5 mg Q8H PRN PO 07/11/17 19:00 07/13/17 09:19 ([place] 7.5-325 Mg) 1 tab Q6H PRN PO 07/13/17 13:15 07/13/17 15:00 A/P Assessment and Plan Vertigo The patient is very dizzy and has been nauseous secondary to the dizziness. She has had milder cases in the past. CT of the head was unremarkable. MRI of the brain was also unremarkable. - Meclizine as needed. Added Valium. - Antiemetics as needed. - s/p IV fluids. - Physical therapy. Seizures Reported by the patient's mother. EEG unremarkable. - Continue Topamax and Lamictal. - Neurology following. - Seizure precautions. Severe hypokalemia/ hypophosphatemia Likely secondary to nausea and vomiting. Improved. - Replete with IV supplementation and monitor BMP. - ADAT. Anemia Chronic. - Follow CBC as needed. Hypotension Likely secondary to hypovolemia. - IV fluids. - Advance diet. PPx: SCDs Discharge Planning Hopefully discharge home in the morning if vertigo is improved and electrolytes are stable Marco Hdez DO Jul 13, 2017 15:41
[2017-07-13] MEDS ORDERED: SERTRALINE HCL 100 MG TAB PO SCH (21:00)
[2017-07-13 21:43] LABS: BICARBONATE 29.1 MEQ/L (21.0-32.0); CALCIUM 8.9 MG/DL (8.5-10.1); CREATININE 0.92 MG/DL (0.50-1.00); MAGNESIUM 1.9 MG/DL (1.5-2.5)
[2017-07-13 21:50] LABS: PHOSPHORUS 2.8 MG/DL (2.5-4.9)
--- NOTE | 2017-07-13 21:51 | HHI.PR ---
Subjective Remarks NOT SEEN Objective Vitals Vital Signs Date Time Temp Pulse Resp B/P (MAP) Pulse Ox O2 Delivery O2 Flow Rate FiO2 07/13/17 19:00 96.7 83 17 95/55 (68) 95 07/13/17 16:00 96.0 84 18 100/62 (75) 100 07/13/17 16:00 18 07/13/17 12:00 97.7 94 18 93/48 (63) 100 07/13/17 08:00 96.7 75 18 92/53 (66) 100 07/13/17 07:00 80 07/13/17 04:49 97.1 71 17 90/56 (67) 100 07/12/17 23:17 97.5 82 17 106/62 (77) 100 I/O 07/12/17 07/12/17 07/12/17 07/13/17 07/13/17 07/13/17 07:00 15:00 23:00 07:00 15:00 23:00 Intake Total 1200 ml 480 ml 480 ml 600 ml 480 ml Balance 1200 ml 480 ml 480 ml 600 ml 480 ml Intake Oral 1200 ml 480 ml 480 ml 600 ml 480 ml # Voids 6 2 1 3 3 # Bowel Movements 2 0 0 1 1 Result Diagram: 07/12/17 0514 07/13/172004 Imaging Last Impressions Head CT 07/11/17 Signed Impressions: Service Date/Time: Tuesday, July 11, 2017 02:09 - CONCLUSION: No acute intracranial findings. Moy Mackey MD Chest X-Ray 07/11/17 Signed Impressions: Service Date/Time: Tuesday, July 11, 2017 01:54 - CONCLUSION: No acute cardiopulmonary disease identified. Moy Mackey MD Cervical Spine CT 07/11/17 Signed Impressions: Service Date/Time: Tuesday, July 11, 2017 02:11 - CONCLUSION: No evidence of fracture. Moy Mackey MD Brain MRI 07/11/17 Signed Impressions: Service Date/Time: Tuesday, July 11, 2017 20:05 - CONCLUSION: Normal examination for a patient of this age. Viet Grimaldo MD Objective Remarks GENERAL: This is a well-nourished, well-developed patient, in no apparent distress. SKIN: No rashes, ecchymoses or lesions. Cool and dry. HEAD: Atraumatic. Normocephalic. No temporal or scalp tenderness. EYES: Congenital blindness. Extraocular motions intact. No scleral icterus. No injection or drainage. ENT: Nose without bleeding, purulent drainage or septal hematoma. Throat without erythema, tonsillar hypertrophy or exudate. Uvula midline. Airway patent. NECK: Trachea midline. No JVD or lymphadenopathy. Supple, nontender, no meningeal signs. CARDIOVASCULAR: Regular rate and rhythm without murmurs, gallops, or rubs. RESPIRATORY: Clear to auscultation. Breath sounds equal bilaterally. No wheezes , rales, or rhonchi. GASTROINTESTINAL: Abdomen soft, non-tender, nondistended. No hepato-splenomegaly , or palpable masses. No guarding. MUSCULOSKELETAL: Extremities without clubbing, cyanosis, or edema. No joint tenderness, effusion, or edema noted. NEUROLOGICAL: Awake and alert. Cranial nerves II through XII intact. Motor and sensory grossly within normal limits. Five out of 5 muscle strength in all muscle groups. Normal speech. PSYCH: Mood and affect appropriate. Procedures none A/P Problem List: (1) Seizure ICD Code: R56.9 - Unspecified convulsions Status: Acute (2) Dizziness ICD Code: R42 - Dizziness and giddiness Status: Acute Assessment and Plan Vertigo The patient is very dizzy and has been nauseous secondary to the dizziness. She has had milder cases in the past. CT of the head was unremarkable. MRI of the brain was also unremarkable. - Meclizine as needed. Added Valium. - Antiemetics as needed. - s/p IV fluids. - Physical therapy. Seizures Reported by the patient's mother. EEG unremarkable. - Continue Topamax and Lamictal. - Neurology following. - Seizure precautions. Severe hypokalemia/ hypophosphatemia Likely secondary to nausea and vomiting. Improved. - Replete with IV supplementation and monitor BMP. - ADAT. Anemia Chronic. - Follow CBC as needed. Hypotension Likely secondary to hypovolemia. - IV fluids. - Advance diet. PPx: SCDs Discharge Planning Hopefully discharge home in the morning if vertigo is improved and electrolytes are stable Riley Elizalde MD Jul 13, 2017 21:51
[2017-07-13] MEDS ORDERED: DIAZ5 PO (21:56)
[2017-07-13] MEDS ORDERED: MECL1TAB42 PO (21:56)
--- NOTE | 2017-07-13 21:57 | HHI.DCPOC ---
Discharge Care Plan Diagnosis: (1) Seizure (2) Dizziness Your Health Problems Are: Difficulty with ADL Exercise Tolerance Goals to Promote Your Health * To prevent worsening of your condition and complications * To maintain your health at the optimal level Directions to Meet Your Goals Take your medications as prescribed Follow your dietary instruction Follow activity as directed Keep your appointments as scheduled Take your immunizations and boosters as scheduled If your symptoms worsen call your PCP, if no PCP go to Urgent Care Center or Emergency Room Smoking is Dangerous to Your Health. Avoid second hand smoke Call the 24-hour hour crisis hotline for domestic abuse at Riley Elizalde MD Jul 13, 2017 21:57
[2017-07-13] MEDS: TOPIRAMATE 25 MG TAB PO SCH (23:05)
[2017-07-14 04:45] VITALS: BP 109/57; PULSE 94; RESP 18; TEMP 97.8; O2SAT 98
[2017-07-14] MEDS: DIAZEPAM 5 MG TAB PO PRN (05:14)
[2017-07-14] MEDS: MECLIZINE HCL 25 MG TAB PO PRN (05:14)
[2017-07-14 05:48] LABS: BICARBONATE 28.1 MEQ/L (21.0-32.0); CALCIUM 8.8 MG/DL (8.5-10.1); CREATININE 0.99 MG/DL (0.50-1.00); MAGNESIUM 1.9 MG/DL (1.5-2.5)
[2017-07-14 05:49] LABS: PHOSPHORUS 3.7 MG/DL (2.5-4.9)
[2017-07-14 07:59] VITALS: PULSE 89
[2017-07-14 08:00] VITALS: BP 96/59; PULSE 92; RESP 16; TEMP 98; O2SAT 99
[2017-07-14] MEDS: DOCUSATE SODIUM 50 MG/SENNA 8.6 MG TAB PO SCH (09:00)
[2017-07-14] MEDS: ACETAMINOPHEN/HYDROcodone 325 MG/7.5 MG TAB PO PRN (09:58)
[2017-07-14] MEDS: SODIUM CHLORIDE 0.9% FLUSH 10 ML FLUSH IV FLUSH SCH (09:59)
[2017-07-14] MEDS: lamoTRIgine 100 MG TAB PO SCH ×2 (09:59→13:25)
--- NOTE | 2017-07-14 11:54 | HHI.PR ---
Subjective Remarks Follow-up vertigo/benign positional paroxysmal vertigo 07/14/17-patient seen and examined, still with some vertigo however improved. No Acute event overnight Objective Vitals Vital Signs Date Time Temp Pulse Resp B/P (MAP) Pulse Ox O2 Delivery O2 Flow Rate FiO2 07/14/17 10:58 18 07/14/17 08:00 98.0 92 16 96/59 (71) 99 07/14/17 04:45 97.8 94 18 109/57 (74) 98 07/13/17 23:34 97.6 88 18 90/56 (67) 99 07/13/17 19:00 96.7 83 17 95/55 (68) 95 07/13/17 16:00 96.0 84 18 100/62 (75) 100 07/13/17 12:00 97.7 94 18 93/48 (63) 100 I/O 07/13/17 07/13/17 07/13/17 07/14/17 07/14/17 07/14/17 07:00 15:00 23:00 07:00 15:00 23:00 Intake Total 480 ml 600 ml 480 ml 360 ml Balance 480 ml 600 ml 480 ml 360 ml Intake Oral 480 ml 600 ml 480 ml 360 ml # Voids 1 3 3 2 # Bowel Movements 0 1 1 0 Result Diagram: 07/12/17 0514 07/14/17 0503 Imaging Last Impressions Head CT 07/11/17 0000 Signed Impressions: Service Date/Time: Tuesday, July 11, 2017 02:09 - CONCLUSION: No acute intracranial findings. Moy Mackey MD Chest X-Ray 07/11/17 0000 Signed Impressions: Service Date/Time: Tuesday, July 11, 2017 01:54 - CONCLUSION: No acute cardiopulmonary disease identified. Moy Mackey MD Cervical Spine CT 07/11/17 0000 Signed Impressions: Service Date/Time: Tuesday, July 11, 2017 02:11 - CONCLUSION: No evidence of fracture. Moy Mackey MD Brain MRI 07/11/17 0000 Signed Impressions: Service Date/Time: Tuesday, July 11, 2017 20:05 - CONCLUSION: Normal examination for a patient of this age. Viet Grimaldo MD Objective Remarks GENERAL: NAD SKIN: Warm and dry. HEAD: Normocephalic. EYES: No scleral icterus. No injection or drainage. NECK: Supple, trachea midline. No JVD or lymphadenopathy. CARDIOVASCULAR: Regular rate and rhythm without murmurs, gallops, or rubs. RESPIRATORY: Breath sounds equal bilaterally. No accessory muscle use. GASTROINTESTINAL: Abdomen soft, non-tender, nondistended. MUSCULOSKELETAL: No cyanosis, or edema. BACK: Nontender without obvious deformity. No CVA tenderness. Procedures none A/P Problem List: (1) Seizure ICD Code: R56.9 - Unspecified convulsions Status: Acute (2) Dizziness ICD Code: R42 - Dizziness and giddiness Status: Acute Assessment and Plan 31-year-old female with Vertigo BPPV CT of the head was unremarkable. MRI of the brain was also unremarkable. - Meclizine as needed. Valium. - Antiemetics as needed. - s/p IV fluids. - Physical therapy. Seizures Reported by the patient's mother. EEG unremarkable. - Continue Topamax and Lamictal. - Neurology following. - Seizure precautions. Severe hypokalemia/ hypophosphatemia - Improved. - Replete with IV supplementation and monitor BMP. - ADAT. Anemia Chronic. Hypotension Likely secondary to hypovolemia. - IV fluids. - Advance diet. PPx: Joe Rosado MD Jul 14, 2017 11:54
--- NOTE | 2017-07-14 11:56 | HHI.DS ---
Discharge Summary Admission Date Jul 11, 2017 at 04:31 Discharge Date: Jul 14, 2017 Admitting Diagnosis intractable dizziness, hypokalemia, hypocalcemia, headache (1) Seizure ICD Code: R56.9 - Unspecified convulsions Status: Acute (2) Dizziness ICD Code: R42 - Dizziness and giddiness Status: Acute Procedures none Brief History - From Admission The patient is a 31-year-old female with a past medical history of Erler Danlos syndrome and seizure disorder who is presenting to the hospital with dizziness and seizures. The patient states that for the past couple of days she has felt weak and dizzy. She describes the dizziness as feeling like the room is spinning around. She describes feeling sore and achy all over her body. She has been having a headache on and off involving the back and top of her head. She does describe some sinus pain as well. She says the dizziness is so bad she could barely sit up. She says sometimes she vomits because of the dizziness. She was told by her mother that she was having seizures that appeared partial/ complex and involving all limbs. The patient is currently feeling better but is still nauseous. She says she has had vertigo in the past but not this severe. Discussed with nursing. CBC/BMP: 07/12/17 0514 07/14/17 0503 Significant Findings Laboratory Tests Test 07/11/17 12:12 07/12/17 05:14 07/13/17 20:05 07/14/17 05:03 Calcium Level 7.9 MG/DL (8.5-10.1) Phosphorus Level 1.2 MG/DL (2.5-4.9) Potassium Level 3.4 MEQ/L (3.5-5.1) 3.4 MEQ/L (3.5-5.1) Chloride Level 110 MEQ/L (98-107) Anion Gap 4 MEQ/L (5-15) Estimat Glomerular Filtration Rate 85 ML/MIN (>89) 71 ML/MIN (>89) 70 ML/MIN (>89) 65 ML/MIN (>89) Red Blood Count 3.93 MIL/MM3 (4.00-5.30) Monocytes (%) (Auto) 10.4 % (0.0-8.0) Blood Urea Nitrogen 6 MG/DL (7-18) Imaging Last Impressions Head CT 07/11/17 0000 Signed Impressions: Service Date/Time: Tuesday, July 11, 2017 02:09 - CONCLUSION: No acute intracranial findings. Moy Mackey MD Chest X-Ray 07/11/17 Signed Impressions: Service Date/Time: Tuesday, July 11, 2017 01:54 - CONCLUSION: No acute cardiopulmonary disease identified. Moy Mackey MD Cervical Spine CT 07/11/17 Signed Impressions: Service Date/Time: Tuesday, July 11, 2017 02:11 - CONCLUSION: No evidence of fracture. Moy Mackey MD Brain MRI 07/11/17 Signed Impressions: Service Date/Time: Tuesday, July 11, 2017 20:05 - CONCLUSION: Normal examination for a patient of this age. Viet Grimaldo MD PE at Discharge GENERAL: NAD SKIN: Warm and dry. HEAD: Normocephalic. EYES: No scleral icterus. No injection or drainage. NECK: Supple, trachea midline. No JVD or lymphadenopathy. CARDIOVASCULAR: Regular rate and rhythm without murmurs, gallops, or rubs. RESPIRATORY: Breath sounds equal bilaterally. No accessory muscle use. GASTROINTESTINAL: Abdomen soft, non-tender, nondistended. MUSCULOSKELETAL: No cyanosis, or edema. BACK: Nontender without obvious deformity. No CVA tenderness. Hospital Course While in hospital, patient was treated for: Vertigo BPPV CT of the head was unremarkable. MRI of the brain was also unremarkable. - She was treated with Meclizine as needed and Valium. - s/p IV fluids. - Physical therapy was consulted Seizures -Neurology was consulted - EEG unremarkable. - Treated with Topamax and Lamictal. - Seizure precautions. Severe hypokalemia/ hypophosphatemia - Improved electrolyte replacement and IV fluid hydration Anemia Chronic and H&H was monitored. Hypotension Likely secondary to hypovolemia. -Treated with IV fluids. PPx: SCDs Pt Condition on Discharge: Stable Discharge Disposition: Discharge Home Discharge Time: <= 30 minutes Discharge Instructions DIET: Follow Instructions for: As Tolerated, No Restrictions Activities you can perform: Regular-No Restrictions Follow up Referrals: Neurology - 1 Week PCP Follow-up - 1 Week New Medications: Diazepam (Valium) 5 Mg Tab 5 MG PO Q8H PRN for DIZZINESS, #21 TAB Meclizine HCl (Meclizine 25) 25 Mg Tab 25 MG PO Q8H PRN for dizziness, #30 TAB Continued Medications: Hydrocodone-Acetaminophen (Hydrocodone-Acetaminophen) 7.5 Mg-325 Mg Tab 1 TAB PO Q6H PRN for PAIN, TAB 0 Refills Lamotrigine (Lamotrigine) 200 Mg Tab 200 MG PO TID for Control Seizures, #60 TAB 0 Refills Sertraline (Zoloft) 100 Mg Tab 100 MG PO DAILY, #30 TAB 0 Refills Topiramate (Topamax) 50 Mg Tab 50 MG PO HS for Control Seizures, #60 TAB 0 Refills Joe Browne MD Jul 14, 2017 11:56
[2017-07-14 12:00] VITALS: BP 95/66; PULSE 100; RESP 17; TEMP 97.1; O2SAT 100
== END 2017-07-14 14:16 | disposition home or self-care (01) ==
LOC: NEPC 01:17 → NEDA 04:31 → N06B 05:28
PROVIDERS: ADMIT Hospitalist; ATTEND Hospitalist
DX: R56.9 Unspecified convulsions (principal); Q79.6 Ehlers-Danlos syndromes; D64.9 Anemia, unspecified; D68.0 Von Willebrand disease; I95.9 Hypotension, unspecified; R94.31 Abnormal electrocardiogram [ECG] [EKG]; H54.7 Unspecified visual loss; K21.9 Gastro-esophageal reflux disease without esophagitis; Z79.899 Other long term (current) drug therapy
CPT/HCPCS: 70450; 70553; 71045; 72125; 80048; 80053; 80201; 81001; 82550; 83735; 84100; 84484; 84702; 84703; 85025; 85610; 85730; 87804; 93005; 95819; 96361; 96365; 96366; 96367; 96375; 97161; 97530; 99285; A9579; G0378; G8987; G8988; J0610; J1885; J2765; J3480; J7050